=== PATIENT | male | born 1955 | race Caucasian/White ===

== ENCOUNTER → 2016-12-21 | Outpatient (CLI) | payer OTHER ==
[~2016-12-21] MED LIST: ASA CHILDREN'S81 MG PO; B-12 DOTS500 MCG PO; COREG DPS6.25 MG PO; CYMBALTA30 MG PO; FOLVITE-DPS1 MG PO; NEURONTIN DPS300 MG PO; NEURONTIN DPS600 MG PO; THERA1 EACH PO; TYLENOL DP650 MG/20. PO; VITAMIN B1100 MG PO; ZESTRIL DPS10 MG PO; ZOCOR80 MG PO
== END | disposition home or self-care (01) ==
LOC: PTH.S 08:48
DX: E61.0 Copper deficiency (principal)